=== PATIENT | male | born 1975 | race Caucasian/White ===

== ENCOUNTER 2016-06-28 15:11 | Emergency (ER) | payer SELFPAY ==
[~2016-06-28] VITALS: Ht 152.4 cm; Wt 90.0 kg
[2016-06-28 15:13] VITALS: Ht 152.4 cm; Wt 90.0 kg
--- NOTE | 2016-06-28 15:50 | RADRPT ---
PROCEDURE: XR Chest. CLINICAL INDICATION: Syncope TECHNIQUE: Chest AP portable. COMPARISON: No comparison available. FINDINGS: The mediastinal structures are unremarkable. The heart is normal in size and configuration. The pu lmonary vascularity is normal. The lung urena are unremarkable. No consolidation is identified. The pleural spaces are unremarkable. The axial skeleton is unremarkable. IMPRESSION: No active intrathoracic disease. RPTAT: [facility] .Guillermo Wolf MD, MD Date Time Electronically viewed and signed by .Guillermo Wolf MD, on 06/28/2016 15:50 .B/
--- NOTE | 2016-06-28 15:59 | ERD ---
ER Documentation Chief Complaint Date/Time DATE: 06/28/16 TIME: 15:55 Chief Complaint SYNCOPE CODE OSCAR HPI This is a 40-year-old male who presents to the emergency room after a syncopal episode. This patient was visiting his mother in the intensive care unit and states that he does not like needles or blood and saw that his mother had " tubes coming out of her". The patient states that he felt like he was going to pass out and he did faint. A code oscar was called in this patient was transferred to the ER. The patient denies any head injury at this time, or headache. ROS All systems reviewed and are negative except as per history of present illness. Medications Home Meds No Active Prescriptions or Reported Meds Allergies Allergies: Coded Allergies: No Known Allergy (Unverified , 06/28/16) PMhx/Soc Medical and Surgical Hx: pt denies Medical Hx, pt denies Surgical Hx Hx Alcohol Use: No Hx Substance Use: Yes (MEDICAL MARIJUANA) Hx Tobacco Use: Yes Smoking Status: Current every day smoker Physical Exam Vitals Vital Signs Date Time Temp Pulse Resp B/P Pulse Ox O2 Delivery O2 Flow Rate FiO2 06/28/16 15:13 98.0 87 18 125/61 99 Physical Exam INITIAL VITAL SIGNS: Reviewed by me GENERAL: The patient is well developed and appropriate for usual state of health in no apparent distress HEENT: Pupils equal, round, and reactive to light. EOMI. There is no scleral icterus. NECK: C-spine is soft and supple, there is no meningismus. There is no cervical lymphadenopathy. LUNGS: Clear to auscultation bilaterally. There are no rales, wheezes or rhonchi. HEART: Regular rate and rhythm, no murmurs, clicks, rubs or gallops. ABDOMEN: Soft, non-tender, non-distended. There are bowel sounds in all four quadrants. No rebound or guarding. EXTREMITIES: There is no peripheral cyanosis or edema. No focal swelling or erythema. NEUROLOGICAL: The patient moves all four extremities with 5/5 strength. Cranial nerves II - XII are intact. Normal gait. Alert and oriented SKIN: There is no apparent rash or petechiae. HEME/LYMPHATIC: There is no evidence of excessive bruising or lymphedema. PSYCHIATRIC: The patient does appear to be mildly agitated Procedures/MDM EKG: Rate/Rhythm: [Normal Sinus Rhythm] QRS, ST, T-waves: [No changes consistent w/ acute ischemia] Impression: [No evidence of ischemia or arrhythmia] Chest X-ray 1V Interpreted by me: Soft Tissue: No acute abnormalities Bones: No acute abnormalities Mediastinum/Cardiac Silhouette/Lungs: [No acute abnormalities] This 40-year-old male presents to the emergency room for evaluation of a syncopal episode. This patient was visiting his mother in the intensive care unit and did faint. A CODE green was called this patient was transported to the emergency room. This patient is refusing any blood work. He states that he faints when he sees needles, and he saw tubes coming out of his mother in the intensive care unit in the past. He does not want any IV fluids or any medications. An EKG was obtained which shows normal sinus rhythm, chest x-ray was obtained which does not show any acute infiltrates or pneumothorax. This patient is hemodynamically stable with a blood pressure of 124/71. He is not hypoxic, states is feeling much better. This patient will be discharged at this time with instructions to return to the ER if he starts to feel faint. The patient verbalized understanding. Departure Diagnosis: Primary Impression: Syncope Condition: Stable SOCORRO NARVEAZ DO Jun 28, 2016 15:59
[2016-06-28 16:10] VITALS: BP 131/89; PULSE 91; RESP 18; TEMP 98
== END 2016-06-28 16:10 | disposition home or self-care (01) ==
LOC: E/R 15:11
DX: R55 Syncope and collapse (principal); F17.210 Nicotine dependence, cigarettes, uncomplicated
CPT/HCPCS: 71010; 93005